=== PATIENT | female | born 1945 | race Caucasian/White ===

== ENCOUNTER 2018-02-03 11:07 | Emergency (ER) | payer BC ==
--- NOTE | 2018-02-03 12:07 | RAD ---
PORTABLE CHEST: Date: 02/03/18 PROVIDED CLINICAL HISTORY: Cough. FINDINGS: Comparison with 04/25/14. Cardiac and mediastinal silhouette within normal limits. Lungs appear clear. No pleural fluid or pneu mothorax apparent. IMPRESSION: No evidence for an acute cardiopulmonary process. POS: [facility]
== END 2018-02-03 11:51 | disposition home or self-care (01) ==
LOC: ERS 11:07
DX: J18.9 Pneumonia, unspecified organism (principal); I34.1 Nonrheumatic mitral (valve) prolapse; Z79.899 Other long term (current) drug therapy; Z79.82 Long term (current) use of aspirin
CPT/HCPCS: 71045; 94640; J7620

== ENCOUNTER 2021-01-11 13:31 | Outpatient (CLI) | payer MEDICARE, BC | END 2021-01-11 13:32 | disposition home or self-care (01) | LOC: BICMAMMO 13:31 | PROVIDERS: ATTEND Internal Medicine | DX: N63.22 Unspecified lump in the left breast, upper inner quadrant (principal) | CPT/HCPCS: 76642; 77066; G0279 ==

== ENCOUNTER → 2021-01-12 | Day surgery (SDC) | payer MEDICARE, BC | LOC: BICULT 12:19 | PROVIDERS: ATTEND Internal Medicine | PROC: 0H9U3ZX Drainage of Left Breast, Percutaneous Approach, Diagnostic (ICD-10-PCS; principal; 2021-01-12) | DX: C50.212 Malignant neoplasm of upper-inner quadrant of left female breast (principal); Z88.2 Allergy status to sulfonamides; Z88.5 Allergy status to narcotic agent | CPT/HCPCS: 19083; 88305; 88341; 88342 ==

== ENCOUNTER 2021-01-20 13:02 | Outpatient (CLI) | payer MEDICARE, BC ==
[2021-01-20 14:06] LABS: #Eosinphils 0.1 10x3/uL (0.0-0.5); #Monocytes 0.5 10x3/uL (0.0-1.1); #Neutrophils 2.9 10x3/uL (1.5-8.4); %Basophils 0.5 % (0.0-2.0); %Lymphocytes 41.1 % (18.0-47.0); %Monocytes 8.3 % (0.0-10.0); %Neutrophils 48.8 % (40.0-75.0); Hemoglobin 12.9 g/dL (12.0-15.5); Mean Corpuscular HGB CONC 32.3 g/dL (32.0-36.0); Mean Corpuscular Hemoglobin 26.4 pg (27.0-33.0); Mean Corpuscular Volume 81.8 fl (81.6-98.3); Mean Platelet Volume 10.1 fl (7.4-10.4); Platelet Count 205 10x3/uL (150-450); RBC Distribution Width 13.2 % (11.5-14.5); Red Blood Cell (RBC) Count 4.88 10x6/uL (3.90-5.03)
[2021-01-20 14:16] LABS: Anion Gap 13 mmol/L (10-20); BUN (Urea Nitrogen) 13 mg/dL (9.8-20.1); Calc. Creatinine Clearance 0 mL/min (70-130); Calcium 9.2 mg/dL (7.8-10.44); Carbon Dioxide 26 mmol/L (23-31); Chloride 104 mmol/L (98-107); Glucose 102 mg/dL (83-110); Potassium 4.2 mmol/L (3.5-5.1); Sodium 139 mmol/L (136-145)
[2021-01-21 01:42] LABS: SARS-CoV-2 PCR by NAA Not Detected (NotDetected)
== END 2021-01-20 13:03 | disposition home or self-care (01) ==
LOC: LABBT 13:02
PROVIDERS: ATTEND Specialist
DX: Z01.818 Encounter for other preprocedural examination (principal); C50.912 Malignant neoplasm of unspecified site of left female breast; Z20.822 Contact with and (suspected) exposure to COVID-19
CPT/HCPCS: 80048; 85025; 93005; U0003; U0005; 93010

== ENCOUNTER 2021-01-25 11:56 | Day surgery (SDC) | payer MEDICARE, BC ==
[2021-01-24 11:25] VITALS: BMI 32.3
[2021-01-25] MEDS ORDERED: Acetaminophen 500 MG TAB ONE (12:15)
[2021-01-25] MEDS ORDERED: Ketorolac Tromethamine 30 MG/ML VIAL ONE (12:15)
[2021-01-25] MEDS ORDERED: ceFAZolin 2 GM/DEX 5% 100 ML BAG ONE (12:26)
[2021-01-25] MEDS ORDERED: Bupivacaine 0.25% HCL 30 ML VIAL ONE (18:43)
[2021-01-25] MEDS ORDERED: Lidocaine 1% w/Epinephrine 1:100K 20 ML VIAL ONE (18:43)
[2021-01-25] MEDS ORDERED: Fentanyl 100 MCG/2 ML VIAL ONE (18:44)
[2021-01-25] MEDS ORDERED: PROPOFOL 200 MG/20 ML VIAL ONE (18:55)
[2021-01-25] MEDS ORDERED: Lidocaine 1% PF 5 ML VIAL ONE (18:55)
[2021-01-25] MEDS ORDERED: Meperidine HCl/PF 25 MG/ML VIAL ONE (19:44)
== END 2021-01-25 21:01 | disposition home or self-care (01) ==
LOC: SDC 11:56
PROVIDERS: ATTEND Specialist
PROC: 0JH60WZ Insertion of Totally Implantable Vascular Access Device into Chest Subcutaneous Tissue and Fascia, Open Approach (ICD-10-PCS; principal; 2021-01-25)
PROC: 02HV33Z Insertion of Infusion Device into Superior Vena Cava, Percutaneous Approach (ICD-10-PCS; 2021-01-25)
DX: C50.912 Malignant neoplasm of unspecified site of left female breast (principal); I10 Essential (primary) hypertension; E78.5 Hyperlipidemia, unspecified; K21.9 Gastro-esophageal reflux disease without esophagitis; M19.90 Unspecified osteoarthritis, unspecified site; Z17.1 Estrogen receptor negative status [ER-]; Z79.2 Long term (current) use of antibiotics; Z79.82 Long term (current) use of aspirin; Z79.899 Other long term (current) drug therapy; Z88.2 Allergy status to sulfonamides; Z88.5 Allergy status to narcotic agent; Z91.040 Latex allergy status
CPT/HCPCS: 36561; 71045; C1788; J1642; J1885; J2175; J2704; J3010; S0020

== ENCOUNTER 2021-02-01 14:30 | Outpatient (CLI) | payer MEDICARE, BC | END 2021-02-01 14:31 | disposition home or self-care (01) | LOC: ULT 14:30 | PROVIDERS: ATTEND Internal Medicine Hematology & Oncology | DX: Z51.11 Encounter for antineoplastic chemotherapy (principal); C50.812 Malignant neoplasm of overlapping sites of left female breast; Z79.899 Other long term (current) drug therapy; I08.1 Rheumatic disorders of both mitral and tricuspid valves | CPT/HCPCS: 93306 ==

== ENCOUNTER 2021-05-05 10:23 | Outpatient (CLI) | payer MEDICARE, BC | END 2021-05-05 10:24 | disposition home or self-care (01) | LOC: BICULT 10:23 | PROVIDERS: ATTEND Internal Medicine Hematology & Oncology | DX: C50.812 Malignant neoplasm of overlapping sites of left female breast (principal) ==

== ENCOUNTER 2021-06-30 11:31 | Outpatient (CLI) | payer MEDICARE, BC ==
[2021-06-30 12:36] LABS: Hemoglobin 11.7 g/dL (12.0-15.5); Mean Corpuscular Hemoglobin 30.6 pg (27.0-33.0); Mean Corpuscular Volume 90.1 fl (81.6-98.3); Mean Platelet Volume 9.5 fl (7.4-10.4); Platelet Count 268 10x3/uL (150-450); RBC Distribution Width 13.9 % (11.5-14.5); Red Blood Cell (RBC) Count 3.82 10x6/uL (3.90-5.03); White Blood Cell (WBC) Count 6.7 10x3/uL (3.5-10.5)
[2021-06-30 12:50] LABS: MDiff Complete? YES
[2021-06-30 12:54] LABS: Eosinophils 1 % (0-10); Lymphocytes 32 % (21-51); Monocytes 10 % (0-10); Neutrophil 55 % (42-75)
[2021-06-30 12:55] LABS: Platelet Morphology Comment Appears Adequate
[2021-06-30 13:19] LABS: Anion Gap 15 mmol/L (10-20); BUN (Urea Nitrogen) 9 mg/dL (9.8-20.1); Calc. Creatinine Clearance 0 mL/min (70-130); Calcium 8.9 mg/dL (7.8-10.44); Carbon Dioxide 26 mmol/L (23-31); Chloride 106 mmol/L (98-107); Glucose 107 mg/dL (83-110); Potassium 4.1 mmol/L (3.5-5.1); Sodium 143 mmol/L (136-145)
[2021-06-30 23:38] LABS: SARS-CoV-2 PCR by NAA Not Detected (NotDetected)
== END 2021-06-30 11:32 | disposition home or self-care (01) ==
LOC: LABBT 11:31
PROVIDERS: ATTEND Specialist
DX: Z01.818 Encounter for other preprocedural examination (principal); C50.912 Malignant neoplasm of unspecified site of left female breast; Z20.822 Contact with and (suspected) exposure to COVID-19
CPT/HCPCS: 80048; 85025; 93005; U0003; U0005; 93010

== ENCOUNTER 2021-07-28 11:03 | Outpatient (CLI) | payer MEDICARE, BC | END 2021-07-28 11:04 | disposition home or self-care (01) | LOC: CT 11:03 | PROVIDERS: ATTEND Physician Assistant Medical | DX: R10.30 Lower abdominal pain, unspecified (principal); K59.00 Constipation, unspecified; R82.998 Other abnormal findings in urine; Z90.49 Acquired absence of other specified parts of digestive tract | CPT/HCPCS: 74177 ==

== ENCOUNTER 2021-07-31 00:18 | Emergency (ER) | payer MEDICARE, BC ==
[2021-07-31] MEDS ORDERED: Ondansetron PF 4 MG/2 ML Vial ONE (01:37)
[2021-07-31 01:59] LABS: ALT (SGPT) 27 U/L (8-55); AST (SGOT) 57 U/L (5-34); Albumin 3.5 g/dL (3.4-4.8); Alkaline Phosphatase 96 U/L (40-110); Anion Gap 15 mmol/L (10-20); BUN (Urea Nitrogen) 8 mg/dL (9.8-20.1); Bilirubin, Total 2.1 mg/dL (0.2-1.2); Calc. Creatinine Clearance 0 mL/min (70-130); Carbon Dioxide 25 mmol/L (23-31); Chloride 104 mmol/L (98-107); Globulin 2.4 g/dL (2.4-3.5); Glucose 119 mg/dL (83-110); Lipase 21 U/L (8-78); Protein, Total 5.9 g/dL (5.8-8.1); Sodium 141 mmol/L (136-145)
[2021-07-31 02:08] LABS: #Lymphocytes 1.5 thou/uL (1.20-3.40); #Monocytes 0.5 thou/uL (0.11-0.59); #Neutrophils 2.3 thou/uL (1.40-6.50); %Basophils 0.5 % (0.0-1.0); %Eosinophils 0.3 % (0.0-10.0); %Monocytes 11.4 % (0.0-10.0); %Neutrophils 52.8 % (42.0-75.0); Hemoglobin 9.6 g/dL (12.0-16.0); Mean Corpuscular HGB CONC 34.1 g/dL (32.0-36.0); Mean Corpuscular Hemoglobin 32.2 pg (27.0-31.0); Mean Corpuscular Volume 94.5 fL (78.0-98.0); Mean Platelet Volume 6.9 fL (7.4-10.4); Platelet Count 105 thou/uL (130-400); Platelet Morphology Comment Appears Decreased; RBC Distribution Width 13.2 % (11.5-14.5); Red Blood Cell (RBC) Count 2.97 mill/uL (4.20-5.40); White Blood Cell (WBC) Count 4.4 thou/uL (4.8-10.8)
[2021-07-31 03:54] LABS: Bacteria/HPF 3+ HPF (None Seen); Bilirubin Negative (Negative); Blood, Urine 1+ (Negative); Clarity Clear (Clear); Glucose, Urine (Dipstick) Normal (Negative); Ketone, Urine Negative (Negative); Leukocyte Negative Leu/uL (Negative); Nitrite Negative (Negative); Protein, Urine (Dipstick) 20 mg/dL (Neg-Trace); RBC/HPF 0-3 HPF (0-3); Specific Gravity, Urine 1.012 (1.002-1.036); Squamous Epithelial 0-3 HPF (0-3); pH, Urine 5.5 (5.0-9.0)
== END 2021-07-31 04:00 | disposition home or self-care (01) ==
LOC: ERS 00:18
DX: E86.0 Dehydration (principal); R10.30 Lower abdominal pain, unspecified; R10.84 Generalized abdominal pain; R11.2 Nausea with vomiting, unspecified; I10 Essential (primary) hypertension
CPT/HCPCS: 36415; 80053; 81003; 81015; 83605; 83690; 85025; 87040; 93005; 96374; J2405

== ENCOUNTER 2021-12-02 09:49 | Outpatient (CLI) | payer MEDICARE, BC | END 2021-12-02 09:50 | disposition home or self-care (01) | LOC: BICMAMMO 09:49 | PROVIDERS: ATTEND Internal Medicine Hematology & Oncology | DX: Z08 Encounter for follow-up examination after completed treatment for malignant neoplasm (principal); Z85.3 Personal history of malignant neoplasm of breast; N63.20 Unspecified lump in the left breast, unspecified quadrant; N63.15 Unspecified lump in the right breast, overlapping quadrants | CPT/HCPCS: 76642 ×2; 77066; G0279 ==

== ENCOUNTER 2022-03-07 14:36 | Outpatient (CLI) | payer MEDICARE, BC | END 2022-03-07 14:37 | disposition home or self-care (01) | LOC: BICMAMMO 14:36 | PROVIDERS: ATTEND Family Medicine | DX: Z13.820 Encounter for screening for osteoporosis (principal); M85.851 Other specified disorders of bone density and structure, right thigh; M85.852 Other specified disorders of bone density and structure, left thigh; Z78.0 Asymptomatic menopausal state | CPT/HCPCS: 77080 ==

== ENCOUNTER 2022-07-05 10:08 | Outpatient (CLI) | payer MEDICARE, BC | END 2022-07-05 10:09 | disposition home or self-care (01) | LOC: BICMAMMO 10:08 | PROVIDERS: ATTEND Specialist | DX: Z08 Encounter for follow-up examination after completed treatment for malignant neoplasm (principal); Z85.3 Personal history of malignant neoplasm of breast | CPT/HCPCS: 76642 ×2; 77066; G0279 ==

== ENCOUNTER 2023-08-02 11:02 | Outpatient (CLI) | payer MEDICARE | END 2023-08-02 11:03 | disposition home or self-care (01) | LOC: BICMAMMO 11:02 | PROVIDERS: ATTEND Family Medicine | DX: Z13.820 Encounter for screening for osteoporosis (principal); N95.8 Other specified menopausal and perimenopausal disorders; M85.851 Other specified disorders of bone density and structure, right thigh; M85.852 Other specified disorders of bone density and structure, left thigh | CPT/HCPCS: 77080 ==

== ENCOUNTER 2024-02-01 09:19 | Outpatient (CLI) | payer MEDICARE | END 2024-02-01 09:20 | disposition home or self-care (01) | LOC: BICMRI 09:19 | PROVIDERS: ATTEND Specialist | DX: Z08 Encounter for follow-up examination after completed treatment for malignant neoplasm (principal); Z85.3 Personal history of malignant neoplasm of breast | CPT/HCPCS: 82565; A9577; C8908 ==